=== PATIENT | male | born 1965 | race Caucasian/White ===

== ENCOUNTER 2018-02-18 08:15 | Day surgery (SDC) | payer OTHER ==
[2018-02-18] MEDS ORDERED: LIDOCAINE 2% MPF 5 ML VIAL ONE (08:28)
[2018-02-18] MEDS ORDERED: Ringers Lactate 1,000 ML IV ONE (08:40)
[2018-02-18] MEDS ORDERED: PROPOFOL 200 MG/20 ML VIAL IV ONE (09:57)
[2018-02-18] MEDS ORDERED: MIDAZOLAM HCL 2 MG/2 ML INJ ONE (09:57)
[2018-02-18 10:56] VITALS: BP 128/77; TEMP 98.3; O2SAT 97
--- NOTE | 2018-02-18 11:56 | ENDO RPT ---
[address], [address] COLONOSCOPY PROCEDURE REPORT EXAM DATE: 02/18/2018 PATIENT NAME: Blaise Smith MR #: [id number] BIRTHDATE: 1965 ATTENDING: Raheem Delaney DR STATUS: outpatient CASINO FLOOR PERSON: Phoebe Moon RN and Raul Torres [facility] INDICATIONS: The patient is a 52 yr old Male here for a colonoscopy due to S/P perforated diverticulitis with emergent colostomy PROCEDURE PERFORMED: Screening Colonoscopy MEDICATIONS: Per Anesthesia. ESTIMATED BLOOD LOSS: None CONSENT: The patient understands the risks and benefits of the procedure and understands that these risks include, but are not limited to: sedation, allergic reaction, infection, perforation and/or bleeding. Alternative means of evaluation and treatment include, among others: physical exam, x-rays, and/or surgical intervention. The patient elects to proceed with this endoscopic procedure. DESCRIPTION OF PROCEDURE: During intra-op preparation period all mechanical medical equipment was checked for proper function. Hand hygiene and appropriate measures for infection prevention was taken. Procedure, possible complications, alternatives including, but not limited to possibility of bleeding, perforation, tear, infection, sepsis, need for surgery, need for blood transfusion, were explained to the patient. After the risks, benefits and alternatives of the procedure were thoroughly explained, Informed consent was verified, confirmed and timeout was successfully executed by the treatment team. The patient was placed in the left lateral position. A digital rectal exam was performed and revealed internal hemorrhoids. After appropriate level of anesthesia, the scope was passed. The [id number] ([id number]) endoscope was introduced through the anus and advanced to the cecum, which was identified by both the appendix and ileocecal valve. The instrument was then slowly withdrawn as the colon was fully examined. Scope withdrawal time was 8 minutes. COLON FINDINGS: Moderate diverticulosis was noted throughout the entire examined colon. No bleeding was noted from the diverticulosis. There was evidence of a normal appearing prior surgical anastomosis with visible sutures in the rectum. Retroflexed views revealed no abnormalities. The scope was then completely withdrawn from the patient and the procedure terminated. ADVERSE EVENTS: There were no complications. IMPRESSIONS: 1. Moderate diverticulosis was noted throughout the entire examined colon 2. There was evidence of prior surgical anastomosis in the rectum RECOMMENDATIONS: 1. follow-up: office 3 year(s) 2. yearly hemoccult starting in 4 years 3. hemorrhoidal hygiene 4. increase dietary water 5. low fiber / diverticular diet RECALL: Return in 3 year(s) for Colonoscopy. Raheem Delaney DR eSigned: Raheem Delaney DR 02/18/2018 10:35 AM cc: CPT CODES: ICD9 CODES: PATIENT NAME: Blaise SmithStacy MR#: [id number]
== END 2018-02-18 11:02 | disposition home or self-care (01) ==
LOC: OR 08:15
PROVIDERS: ATTEND Surgery
PROC: 0DJD8ZZ Inspection of Lower Intestinal Tract, Via Natural or Artificial Opening Endoscopic (ICD-10-PCS; principal; 2018-02-18 10:00)
DX: Z12.11 Encounter for screening for malignant neoplasm of colon (principal); K57.90 Diverticulosis of intestine, part unspecified, without perforation or abscess without bleeding; K64.8 Other hemorrhoids; K21.9 Gastro-esophageal reflux disease without esophagitis; I10 Essential (primary) hypertension; I48.91 Unspecified atrial fibrillation; E78.00 Pure hypercholesterolemia, unspecified; Z88.6 Allergy status to analgesic agent; Z81.2 Family history of tobacco abuse and dependence
CPT/HCPCS: J2250

== ENCOUNTER 2018-07-02 12:07 | Inpatient (IN) | payer OTHER ==
[2018-07-02 13:06] LABS: Absolute Lymphocytes (CBC) 0.4 K/uL (0.7-4.9); Absolute Monocytes 0.3 K/uL (0.1-1.3); Absolute Neutrophil 13.2 K/uL (1.8-8.0); Basophils % 0.1 % (0-1.3); Hematocrit 47.3 % (39.6-49.0); Lymphocytes % 2.9 % (15.3-44.8); MPV 10.9 fL (7.6-11.3); Monocytes % 2.1 % (3.3-12.3); RBC Red Blood Cell Count 5.49 M/uL (4.33-5.43)
[2018-07-02 13:25] LABS: Albumin 4.7 g/dL (3.4-5.0); Bilirubin Direct 0.1 mg/dL (0-0.2); Bilirubin Total 0.4 mg/dL (0.2-1.0); Potassium 3.3 mmol/L (3.5-5.1); Protein, Total 8.3 g/dL (6.4-8.2)
[2018-07-02] MEDS ORDERED: FENTANYL CITR 100 MCG/2 ML ONE ×2 (13:37→14:57)
[2018-07-02] MEDS ORDERED: ONDANSETRON 4 MG/2 ML VIAL ONE ×2 (13:37→16:03)
[2018-07-02 13:55] LABS: Urine Blood NEGATIVE (NEG); Urine Glucose NEGATIVE (NEG); Urine Protein TRACE (NEG)
[2018-07-02 14:26] LABS: Blood Morphology Comment NOT SEEN (NOT SEEN); Platelet Estimate ADEQ; Urine White Blood Cell Casts 0
--- NOTE | 2018-07-02 14:27 | RAD REPORT ---
EXAM DESCRIPTION: CTAbdomen Pelvis W Contrast - 07/02/2018 1:59 pm CLINICAL HISTORY: Abdominal pain. abdominal pain, IV ONLY COMPARISON: CT ABD PELVIS W CONTRAST dated 04/14/2014; CT ABD PELVIS W CONTRAST dated 11/22/2013 TECHNIQUE: Biphasic CT imaging of the abdomen and pelvis was performed with 100 ml non-ionic IV cont rast. All CT scans are performed using dose optimization technique as appropriate and may include automated exposure control or mA/KV adjustment according to patient size. FINDINGS: The lung bases are clear. The liver demonstrates no aggressive mass or biliary dilatation. The spleen, pancreas, adrenal glands and left kidney are unremarkable. Right kidney contains several cysts the largest measuring 4.4 cm s uperior pole right kidney. Mildly dilated small bowel loops in the central lower abdomen are present compatible with developing mechanical small-bowel obstruction. Multiple complex ventral hernias are present containing fat. Some of the fat in the inferior hernia sac shows slight reticulation suggesting mild findings of incarcer ation are present. Prominent sigmoid diverticulosis is noted without diverticulitis. The appendix is normal. No evidence of significant lymphadenopathy. Lumbosacral degenerative changes are present with hardware in place. IMPRESSION: Mildly dilated small bowel loops in the mid and lower abdomen are noted most compatible with developing mechanical small-bowel obstruction. Multiple complex ventral hernias are seen contain ing omental fat with subtle areas suggesting early incarceration. Prominent sigmoid diverticulosis without diverticulitis.
[2018-07-02] MEDS ORDERED: CEFOXITIN/SWI 1gm 1 GM/10 ML SYR ONE (15:23)
--- NOTE | 2018-07-02 15:59 | ER ---
Nurse's Notes [facility] Name: Blaise Smith Age: 53 yrs Sex: Male : 1965 Arrival Date: 07/02/2018 Time: 12:10 Bed 2 Private MD: Rick Dorsey R Diagnosis: Bowel Obstruction Presentation: 07/02 12:18 Presenting complaint: Patient states: 3 am today, i went to the bathroom and my stomach hj started to have cramps; reports nausea and vomiting; denies diarrhea; hx of colectomy 2ndary to diverticulitis 2 years ago; ; pain is 7/10;. Transition of care: patient was not received from another setting of care. Onset of symptoms was July 02, 2018. Risk Assessment: Do you want to hurt yourself or someone else? Patient reports no desire to harm self or others. Initial Sepsis Screen: Does the patient meet any 2 criteria? Yes Does the patient have a suspected source of infection? No. Patient's initial sepsis screen is negative. Care prior to arrival: None. 12:18 Method Of Arrival: Ambulatory 12:18 Acuity: WARNER 3 hj Triage Assessment: 12:23 General: Appears in no apparent distress. uncomfortable, Behavior is calm, cooperative, hj appropriate for age. Pain: Complains of pain in abdomen. GI: Abdomen is non-distended, Reports lower abdominal pain, upper abdominal pain. Historical: - Allergies: 12:23 Codeine; hj 12:23 meperidine HCl; hj - Home Meds: 12:23 Lipitor Oral [Active]; valsartan-hydrochlorothiazide oral oral [Active]; Nexium Oral hj [Active]; Cymbalta oral oral [Active]; Aspirin Oral [Active]; - PMHx: 12:23 Diverticulitis; Hypertension; Hyperlipidemia; hj - PSHx: 12:23 spinal fusions x 4; L5S1; colectomy; hj - Immunization history:: Adult Immunizations up to date. - Social history:: Smoking status: Patient/guardian denies using tobacco, Patient/guardian denies using alcohol. - Ebola Screening: : Patient negative for fever greater than or equal to 101.5 degrees Fahrenheit, and additional compatible Ebola Virus Disease symptoms Patient denies exposure to infectious person Patient denies travel to an Ebola-affected area in the 21 days before illness onset. Screenin:23 Abuse screen: Denies threats or abuse. Denies injuries from another. Nutritional hj screening: No deficits noted. Tuberculosis screening: No symptoms or risk factors identified. Fall Risk None identified. Assessment: 12:24 GI: Bowel sounds hj 12:49 General: Appears in no apparent distress. uncomfortable, obese, Behavior is bp cooperative, appropriate for age, anxious. Pain: Complains of pain in abdomen Pain currently is 8 out of 10 on a pain scale. Neuro: Level of Consciousness is awake, alert, obeys commands, Oriented to person, place, time, situation, Appropriate for age. Cardiovascular: Rhythm is sinus tachycardia. Respiratory: Airway is patent Respiratory effort is even, unlabored, Respiratory pattern is regular, symmetrical. GI: Bowel sounds present X 4 quads. Abd is soft X 4 quads Abdomen is tender to palpation X 4 quads. : No signs and/or symptoms were reported regarding the genitourinary system. EENT: No deficits noted. Derm: No deficits noted. Musculoskeletal: Circulation, motion, and sensation intact. Range of motion: intact in all extremities. 14:13 Reassessment: PT RETURNED FROM CT. bp 16:11 Reassessment: ADMIT IN PROCESS, SURGERY C/S PENDING. bp Vital Signs: 12:24 BP 126 / 90; Pulse 109; Resp 18; Temp 97.8(O); Pulse Ox 98% on R/A; Weight 99.34 kg; hj Height 5 ft. 10 in. (177.80 cm); Pain 5/10; 12:49 BP 143 / 86; Pulse 103; Resp 18; Pulse Ox 100% ; bp 14:13 BP 123 / 72; Pulse 94; Resp 14; Pulse Ox 95% ; bp 15:00 BP 134 / 79; Pulse 95; Resp 16; Pulse Ox 96% ; bp 16:00 BP 133 / 80; Pulse 93; Resp 14; Pulse Ox 96% ; bp 17:00 BP 117 / 88; Pulse 98; Resp 14; Pulse Ox 97% ; bp 12:24 Body Mass Index 31.42 (99.34 kg, 177.80 cm) ED Course: 12:10 Patient arrived in ED. mr 12:11 Rick Dorsey MD is Private Physician. mr 12:20 Triage completed. hj 12:23 Arm band placed on left wrist. hj 12:24 Patient has correct armband on for positive identification. Placed in gown. Bed in low hj position. Call light in reach. Side rails up X 1. Adult w/ patient. 12:30 Inserted saline lock: 22 gauge in right forearm, using aseptic technique. Blood bp collected. 12:37 Brenton Wong RN is Primary Nurse. bp 12:59 Prasanth Patrick PA is PHCP. jm 12:59 Paul Barron MD is Attending Physician. [facility] 14:00 CT Abd/Pelvis - W/Contrast In Process Unspecified. EDMS 14:08 CT completed. Patient tolerated procedure well. Patient moved back from CT. bq 15:57 Rick Dorsey MD is Hospitalizing Provider. [facility] 17:34 No provider procedures requiring assistance completed. Patient admitted, IV remains in bp place. Administered Medications: 13:32 Drug: fentaNYL (PF) 50 mcg Route: IVP; Site: right antecubital; la1 14:00 Follow up: Response: Pain is decreased bp 13:32 Drug: Zofran 4 mg Route: IVP; Site: right antecubital; la1 14:00 Follow up: Response: No adverse reaction bp 14:48 Drug: fentaNYL (PF) 50 mcg Route: IVP; Site: right forearm; la1 15:07 Follow up: Response: Pain is decreased bp 15:10 Drug: Mefoxin 1 grams Route: IVPB; Infused Over: 30 mins; Site: right forearm; bp 15:45 Follow up: IV Status: Completed infusion; IV Intake: 100ml bp 15:55 Drug: Zofran 4 mg Route: IVP; Site: right antecubital; la1 17:37 Follow up: Response: Nausea is decreased bp 16:50 Drug: Reglan 10 mg Route: IVP; Site: right forearm; bp 17:36 Follow up: Response: Nausea is decreased bp 16:50 Drug: morphine 4 mg Route: IVP; Site: right forearm; bp 17:36 Follow up: Response: Pain is decreased bp Intake: 15:45 IV: 100ml; Total: 100ml. bp Outcome: 15:58 Decision to Hospitalize by Provider. jmm 17:51 Admitted to Med/surg accompanied by tech, family with patient, via wheelchair, room bp 219, with chart, Report called to BETTY GARZA 17:51 Condition: stable 17:51 Instructed on the need for admit. 18:25 Patient left the ED. bp Signatures: Dispatcher [employer] EDMS Prasanth Patrick PA PA jmm Sofía Millard Betty Adan Brown RN RN la1 Willard Rosa RN RN hj Peltier, Brian RN RN bp Corrections: (The following items were deleted from the chart) 12:26 12:24 Pulse 109bpm; Resp 18bpm; Pulse Ox 98% RA; Temp 97.8F Oral; 99.34 kg; Height 5 hj ft. 10 in.; BMI: 31.4; Pain 5/10; hj 12:40 12:18 Presenting complaint: Patient states: 3 am today, i went ot the bathroom and had hj my stomach starting to have cramps; reports nausea and vomiting; denies diarrhea; hx of colectomy 2ndary to diverticulitis; pain is 7/10; hj
--- NOTE | 2018-07-02 15:59 | EDPHYS ---
Physician Documentation [facility] Name: Blaise Smith Age: 53 yrs Sex: Male : 1965 Arrival Date: 07/02/2018 Time: 12:10 Bed 2 Private MD: Rick Dorsey R ED Physician Paul Barron HPI: 07/02 13:17 This 53 yrs old Male presents to ER via Ambulatory with complaints of jmm Abdominal Pain. 13:17 The patient presents with abdominal pain in the lower abdomen. Onset: The jmm symptoms/episode began/occurred gradually, this morning. The symptoms do not radiate. Associated signs and symptoms: Pertinent positives: vomiting. This is a 53 year old male with a history of diverticulitits, htn, hlp that presents to the ED with commplaints of generalized abdominal pain beginning today with one episode of vomiting. Patient states history of diverticulitis with colectomy in 2014. Patient denies diarrhea. . Historical: - Allergies: 12:23 Codeine; hj 12:23 meperidine HCl; hj - Home Meds: 12:23 Lipitor Oral [Active]; valsartan-hydrochlorothiazide oral oral [Active]; Nexium Oral hj [Active]; Cymbalta oral oral [Active]; Aspirin Oral [Active]; - PMHx: 12:23 Diverticulitis; Hypertension; Hyperlipidemia; hj - PSHx: 12:23 spinal fusions x 4; L5S1; colectomy; hj - Immunization history:: Adult Immunizations up to date. - Social history:: Smoking status: Patient/guardian denies using tobacco, Patient/guardian denies using alcohol. - Ebola Screening: : Patient negative for fever greater than or equal to 101.5 degrees Fahrenheit, and additional compatible Ebola Virus Disease symptoms Patient denies exposure to infectious person Patient denies travel to an Ebola-affected area in the 21 days before illness onset. ROS: 13:17 Constitutional: Negative for fever, chills, and weight loss, Cardiovascular: Negative jmm for chest pain, palpitations, and edema, Respiratory: Negative for shortness of breath, cough, wheezing, and pleuritic chest pain. 13:17 Back: Negative for injury and pain, Skin: Negative for injury, rash, and discoloration, Neuro: Negative for headache, weakness, numbness, tingling, and seizure. 13:17 Abdomen/GI: Positive for abdominal pain, nausea, vomiting. 13:17 All other systems are negative. Exam: 13:17 Head/Face: atraumatic. Eyes: EOMI, no conjunctival erythema appreciated ENT: Moist jmm Mucus Membranes Neck: Trachea midline, Supple Chest/axilla: Normal chest wall appearance and motion. Cardiovascular: Regular rate and rhythm. No edema appreciated Respiratory: Normal respirations, no respiratory distress appreciated 13:17 Constitutional: The patient appears alert, awake, uncomfortable. 13:17 Abdomen/GI: Inspection: abdomen appears normal, Bowel sounds: normal, Palpation: moderate abdominal tenderness, in all quadrants, mass, that is tender, of the umbilical area and suprapubic area. 13:17 Back: ROM is normal. 13:17 Musculoskeletal/extremity: ROM: intact in all extremities. 13:17 Neuro: Orientation: is normal, Mentation: is normal, Memory: is normal. 13:17 Psych: Behavior/mood is pleasant, cooperative. Vital Signs: 12:24 BP 126 / 90; Pulse 109; Resp 18; Temp 97.8(O); Pulse Ox 98% on R/A; Weight 99.34 kg; hj Height 5 ft. 10 in. (177.80 cm); Pain 5/10; 12:49 BP 143 / 86; Pulse 103; Resp 18; Pulse Ox 100% ; bp 14:13 BP 123 / 72; Pulse 94; Resp 14; Pulse Ox 95% ; bp 15:00 BP 134 / 79; Pulse 95; Resp 16; Pulse Ox 96% ; bp 16:00 BP 133 / 80; Pulse 93; Resp 14; Pulse Ox 96% ; bp 17:00 BP 117 / 88; Pulse 98; Resp 14; Pulse Ox 97% ; bp 12:24 Body Mass Index 31.42 (99.34 kg, 177.80 cm) MDM: 13:17 Patient medically screened. shayla 15:56 Data reviewed: vital signs, nurses notes. Counseling: I had a detailed discussion with shayla the patient and/or guardian regarding: the historical points, exam findings, and any diagnostic results supporting the discharge/admit diagnosis, lab results, radiology results, the need for further work-up and treatment in the hospital. ED course: I discussed the patient with Dr. Delaney whom consulted with Dr. Desai on admission. . ED course: i discussed the patient with Dr. Dorsey whom accepted admission. . 07/02 12:48 Order name: Basic Metabolic Panel; Complete Time: 13:26 bp 07/02 12:48 Order name: CBC with Diff; Complete Time: 14:42 bp 07/02 12:48 Order name: Creatinine for Radiology; Complete Time: 13:26 bp 07/02 12:48 Order name: Hepatic Function; Complete Time: 13:26 bp 07/02 12:48 Order name: Lipase; Complete Time: 13:26 bp 07/02 12:50 Order name: Urine Dipstick--Ancillary (enter results); Complete Time: 14:20 eb 07/02 13:10 Order name: CBC Smear Scan; Complete Time: 14:42 EDNV 07/02 16:43 Order name: Basic Metabolic Panel EDNV 07/02 16:43 Order name: Basic Metabolic Panel EDNV 07/02 16:43 Order name: CBC with Automated Diff EDNV 07/02 16:43 Order name: CBC with Automated Diff EDNV 07/02 16:43 Order name: Lipase EDNV 07/02 16:43 Order name: Lipase EDNV 07/02 16:43 Order name: Liver (Hepatic) Function EDNV 07/02 12:48 Order name: IV Saline Lock; Complete Time: 12:55 bp 07/02 12:48 Order name: Labs collected and sent; Complete Time: 12:55 bp 07/02 12:48 Order name: Urine Dipstick-Ancillary (obtain specimen); Complete Time: 12:49 bp 07/02 13:19 Order name: CT Abd/Pelvis - W/Contrast; Complete Time: 14:42 [facility] 07/02 16:43 Order name: CONS Physician Consult EDNV 07/02 16:43 Order name: NPO EDNV 07/02 16:43 Order name: Liver (Hepatic) Function EDMS Administered Medications: 13:32 Drug: fentaNYL (PF) 50 mcg Route: IVP; Site: right antecubital; la1 14:00 Follow up: Response: Pain is decreased bp 13:32 Drug: Zofran 4 mg Route: IVP; Site: right antecubital; la1 14:00 Follow up: Response: No adverse reaction bp 14:48 Drug: fentaNYL (PF) 50 mcg Route: IVP; Site: right forearm; la1 15:07 Follow up: Response: Pain is decreased bp 15:10 Drug: Mefoxin 1 grams Route: IVPB; Infused Over: 30 mins; Site: right forearm; bp 15:45 Follow up: IV Status: Completed infusion; IV Intake: 100ml bp 15:55 Drug: Zofran 4 mg Route: IVP; Site: right antecubital; la1 17:37 Follow up: Response: Nausea is decreased bp 16:50 Drug: Reglan 10 mg Route: IVP; Site: right forearm; bp 17:36 Follow up: Response: Nausea is decreased bp 16:50 Drug: morphine 4 mg Route: IVP; Site: right forearm; bp 17:36 Follow up: Response: Pain is decreased bp Disposition: 18:30 Co-signature as Attending Physician, Paul Barron MD. Disposition: 07/02/18 15:58 Hospitalization ordered by Rick Dorsey for Observation. Preliminary diagnosis is Bowel Obstruction. - Bed requested for Telemetry/MedSurg (observation). - Status is Observation. bp - Condition is Stable. - Problem is new. - Symptoms have improved. UTI on Admission? No Signatures: Dispatcher [employer] EDMS Maggie Cervantes RN RN dw Prasanth Patrick PA PA [facility] Adan Costa RN RN la Willard Rosa, RN Paul Cobb MD MD Brenton Wong RN RN bp Corrections: (The following items were deleted from the chart) 17:18 15:58 Hospitalization Ordered by Rick Dorsey MD for Observation. Preliminary diagnosis dw is Bowel Obstruction. Bed requested for Telemetry/MedSurg (observation). Status is Observation. Condition is Stable. Problem is new. Symptoms have improved. UTI on Admission? No. [facility] 18:25 17:18 07/02/2018 15:58 Hospitalization Ordered by Rick Dorsey MD for Observation. bp Preliminary diagnosis is Bowel Obstruction. Bed requested for Telemetry/MedSurg (observation). Status is Observation. Condition is Stable. Problem is new. Symptoms have improved. UTI on Admission? No. dw
[2018-07-02] MEDS ORDERED: FENTANYL CITR 100 MCG/2 ML IV PRN (16:39)
[2018-07-02] MEDS ORDERED: MORPHINE 4 MG/ML SYR ONE (17:01)
[2018-07-02] MEDS ORDERED: METOCLOPRAMIDE 10 MG/2mL INJ ONE (17:01)
[2018-07-02] MEDS ORDERED: CEFOXITIN SODIUM 1 GM/VIAL IVPB SCH (18:00)
[2018-07-02] MEDS: D5 0.45 NS 1,000 ML IV SCH (19:01)
[2018-07-02] MEDS: ONDANSETRON 4 MG/2 ML VIAL IV PRN (20:29)
[2018-07-02] MEDS ORDERED: DIAZEPAM 5 MG TABLET PO STA (21:17)
[2018-07-02] MEDS ORDERED: MORPHINE 4 MG/ML SYR IV SCH (22:00)
--- NOTE | 2018-07-02 22:06 | P.CNS ---
Date of Consult: 07/02/18 PC: I was asked to see this patient who presented emergency room with severe abdominal pain for diagnosis and treatment. HPC: Patient started experiencing severe abdominal pain yesterday. Has intensified and required of ER visit. On workup was found have a possible small -bowel obstruction. PMH: Hypertension, hypercholesterol in PSHx: Previous bowel resection for diverticulitis. (laparoscopic converted to open procedure) SOC: Allergic to codeine, and Demerol SYS REVIEW: No cough, wheeze, shortness of breath. No chest pain or palpitations. No urinary complaints. States that he has been having regular bowel movements. He has recently changed his diet to lose weight. More vegetables and fruit. Denies any urinary complaints O/E awake alert uncomfortable at the moment, vital signs are stable HEENT: Within normal limits Chest: Chest movement equal bilaterally ABD: Mildly distended, but soft. No guarding or rebound patient has incisional hernias, but they are soft at the moment LOCO: Intact DATA: Elevated white cell count, CT scans shows area of possible transition suggestive of possible developing SBO IMPRESSION: Abdominal pain secondary to adhesions PLAN: Keep NPO tonight, control his pain medicine, IV fluids, start incentive spirometer. Encourage patient ambulate. Will reassess in the a.m..
[2018-07-02] MEDS: MORPHINE 4 MG/ML SYR IV PRN (22:31)
[2018-07-02] MEDS: PROMETHAZINE 25 MG/ML VIAL IV PRN (22:38)
[2018-07-03] MEDS: D5 0.45 NS 1,000 ML IV SCH ×3 (00:25→08:39)
[2018-07-03] MEDS ORDERED: CEFOXITIN/SWI 1gm 1 GM/10 ML SYR ONE ×2 (00:35→04:30)
[2018-07-03] MEDS: CEFOXITIN/SWI 1gm 1 GM/10 ML SYR IV SCH ×3 (00:39→13:23)
[2018-07-03] MEDS: MORPHINE 4 MG/ML SYR IV PRN ×6 (00:59→22:22)
[2018-07-03 05:25] LABS: Absolute Lymphocytes (CBC) 0.3 K/uL (0.7-4.9); Absolute Monocytes 0.8 K/uL (0.1-1.3); Absolute Neutrophil 19.9 K/uL (1.8-8.0); Basophils % 0.4 % (0-1.3); Lymphocytes % 1.3 % (15.3-44.8); MPV 11.4 fL (7.6-11.3); Monocytes % 3.8 % (3.3-12.3); RBC Red Blood Cell Count 5.86 M/uL (4.33-5.43)
[2018-07-03 05:44] LABS: Albumin 4.1 g/dL (3.4-5.0); Bilirubin Direct 0.2 mg/dL (0-0.2); Bilirubin Total 0.4 mg/dL (0.2-1.0); Potassium 3.2 mmol/L (3.5-5.1); Protein, Total 7.7 g/dL (6.4-8.2)
[2018-07-03] MEDS: ONDANSETRON 4 MG/2 ML VIAL IV PRN ×2 (06:11→20:11)
[2018-07-03] MEDS: hydroCHLOROthiazide 25 MG TAB PO SCH ×2 (08:37→09:00)
[2018-07-03] MEDS: VALSARTAN 80 MG TAB PO SCH ×2 (08:37→09:00)
[2018-07-03] MEDS: OXcarbazepine 150 MG TAB PO SCH ×2 (09:00→20:12)
[2018-07-03] MEDS ORDERED: KCL 20 MEQ/100 mL IVPB 20 MEQ/100 ML BAG IV SCH (09:00)
[2018-07-03] MEDS ORDERED: HOME MED 1 EA UNK (Valsartan/Hydrochlorothiazide [Valsartan-Hctz 320-25 Mg Tab] 1 TAB) PO SCH (09:00)
[2018-07-03] MEDS ORDERED: NS KCL 20MEQ 20 MEQ/1,000 ML BAG IV SCH (09:00)
[2018-07-03 09:09] LABS: Blood Morphology Comment NOT SEEN (NOT SEEN); Platelet Estimate ADEQ
--- NOTE | 2018-07-03 11:58 | P.PN ---
Date of Service: 07/03/18 Responded to a rapid response paged overhead. It seems that while nurse was trying to place NG tube, patient became unresponsive, diaphoretic, and eyes rolled to left side and remained fixed. A rapid response was called. I assessed the patient, patient was able to verbalize, he was alert oriented x3, he was very diaphoretic and was complaining of abdominal pain along with nausea. Blood sugar was 207 Blood pressure stable and he was tachycardic Is alert oriented x3, in moderate acute distress Lungs clear to auscultation Cardiac: Tachycardic, sinus rhythm Abdomen: Distended, tender An EKG was ordered, with sinus tach. Case was discussed with Dr. Dorsey via telephone. Patient was then transferred to the ICU
[2018-07-03] MEDS ORDERED: NA CHLORIDE 0.9% 250 ML IV PRN (16:04)
--- NOTE | 2018-07-03 16:46 | RAD REPORT ---
EXAM DESCRIPTION: Xochitl Single View07/03/2018 4:31 pm CLINICAL HISTORY: Shortness of breath COMPARISON: July 2017 FINDINGS: The lungs appear clear of acute infiltrate. The heart is normal size. Nasogastric tube is present in the stomach IMPRESSION: No acute abnormalities displayed
[2018-07-03] MEDS ORDERED: NA CHLORIDE 0.9% 1,000 ML IV SCH ×2 (17:00→21:00)
[2018-07-03 17:05] LABS: Absolute Lymphocytes (CBC) 0.4 K/uL (0.7-4.9); Absolute Monocytes 1.7 K/uL (0.1-1.3); Basophils % 0.1 % (0-1.3); Eosinophils % 0.1 % (0-4.4); Lymphocytes % 3.6 % (15.3-44.8); MPV 11.2 fL (7.6-11.3); Monocytes % 14.3 % (3.3-12.3); RBC Red Blood Cell Count 6.24 M/uL (4.33-5.43)
[2018-07-03 17:24] LABS: ALT/SGPT 31 U/L (12-78); AST/SGOT 10 U/L (15-37); Albumin 3.2 g/dL (3.4-5.0); Alkaline Phosphatase 90 U/L (45-117); BUN Blood Urea Nitrogen 23 mg/dL (7-18); Bicarbonate 29 mmol/L (21-32); Bilirubin Total 0.6 mg/dL (0.2-1.0); Glucose Level 128 mg/dL (74-106); Protein, Total 6.5 g/dL (6.4-8.2); Sodium Level 141 mmol/L (136-145); Troponin I < 0.02 ng/mL (0.0-0.045)
[2018-07-03] MEDS ORDERED: PIPER/TAZO/NS 4.5gm 4.5 GM/100 ML BAG IVPB SCH (18:00)
[2018-07-03 18:29] LABS: Blood Morphology Comment NOT SEEN (NOT SEEN); Platelet Estimate ADEQ; Platelets, Giant PRESENT; Urine White Blood Cell Casts OK
[2018-07-03 20:00] LABS: Urine Appearance CLEAR; Urine Bilirubin NEGATIVE (NEG); Urine Blood NEGATIVE (NEG); Urine Color YELLOW; Urine Glucose NEGATIVE (NEG); Urine Protein 2+ (NEG); Urine Specific Gravity >=1.030 (1.005-1.030); Urine Urobilinogen 0.2 mg/dL (0.2-1.0)
[2018-07-03 20:01] LABS: Urine Microscopic Reflex ORDER UMIC
--- NOTE | 2018-07-03 20:06 | RAD REPORT ---
EXAM DESCRIPTION: CT - Abdomen Pelvis Wo Contrast - 07/03/2018 7:50 pm CLINICAL HISTORY: Abdominal pain COMPARISON: July 02, 2018 TECHNIQUE: Computed axial tomography of the abdomen and pelvis was obtained. IV and oral contrast we re not requested. All CT scans are performed using dose optimization technique as appropriate and may include automated exposure control or mA/KV adjustment according to patient size. FINDINGS: The evaluation of solid organs, vessels and bowel is limited secondary to the lack of con trast administration. There has been mild progression in the dilatation of jejunal and proximal ileal loops. The mid and di stal ileum are decompressed. A a small to moderate amount of ascites has developed within the pelvis. A small amount of ascites is present within the abdomen. Pneumoperitoneum is not seen. A complex vas hernia containing fat is again demonstrated. The hernia contains a small amount of flui d. Mild stranding within the herniated fat is present as well. A nasogastric tube has been placed into the stomach. The liver, spleen, pancreas, adrenals and left kidney appear grossly normal. Renal cysts unchanged A Levine catheter is present within the bladder. Post surgical changes involve the sigmoid colon. IMPRESSION: Mild worsening in a mechanical small bowel obstruction. Small amount of abdominal ascites. Small to moderate amount of pelvic ascites has developed. Complex ventral hernia contains a small amount of fluid. Mild stranding within the herniated fat may indicate strangulation.
--- NOTE | 2018-07-03 20:07 | P.PN ---
Date of Service: 07/03/18 S: Patient feels well at the current time. His pain is much improved since the placement of the nasogastric tube. O: Lashanda is soft, mildly distended, no areas of guarding or rebound A : Patient had elevated white cell count this morning, anion continuous abdominal pain. I ordered a nasogastric [address] The base the patient had a vasovagal attack ran KIM Renteria was called. He was brought to the ICU of were a nasogastric tube has been placed. Disposition is been verified on chest x- ray. He is stable. His blood pressure has been on the low side and he is mildly tachycardic. I feel this is from fluid depletion as I do not think he was year drinking prior to his presentation to the hospital. PE: Continue current therapy. A CT scan has been ordered but has not resulted yet.
[2018-07-03] MEDS ORDERED: NA CHLORIDE 0.9% 1,000 ML IV ONE (20:09)
[2018-07-03] MEDS: PIPER/TAZO/NS 2.25gm 2.25 GM/50 ML BAG IV SCH ×2 (20:11→23:56)
[2018-07-03 20:28] LABS: Urine Bacteria <20 /HPF (NONE SEEN); Urine Culture Reflex Order NOT NEEDED; Urine Mucus S /HPF (NONE SEEN); Urine RBC <5 /HPF (NONE SEEN)
[2018-07-03] MEDS ORDERED: NOREPINEPHRINE 4 MG in D5W 250 ML IV PRN (20:49)
[2018-07-03] MEDS: NA CHLORIDE 0.9% 100 ML IV SCH ×2 (21:00→23:00)
[2018-07-03] MEDS ORDERED: NA CHLORIDE 0.9% 100 ML IV SCH (22:00)
--- NOTE | 2018-07-04 04:00 | HP ---
Date of Admission: 07/03/2018 Chief Complaint: Abdominal pain. History Of Present Illness: A 53-year-old male was brought to the emergency room with abdominal pain , nausea, and vomiting. The patient had workup done. CAT scan showed evidence of bowel obstruction. The patient is admitted. There is no history of hematemesis. No history of rectal bleeding. Susan ent had colon resection because of diverticulitis in the recent past. Past Medical History: Positive for hypertension, hyperlipidemia, and history of diverticulitis. Past Surgical History: Positive for partial colectomy, back surgery with spinal fusions. Other medi agustin problems include history of occipital neuralgia. Allergies: CODEINE AND DEMEROL. Family History: Noncontributory. Review of Systems: No chest pain or shortness of breath. Physical Examination: General: Revealed a 53-year-old obese male. Vital signs: Blood pressure at admission was normal. HEENT: Otherwise negative. Neck: Supple. JVD negative. Chest: Clear. Heart: Regular. Abdomen: Diffuse tenderness and mild distention noted. Bowel sounds present. Extremities: No edema. Laboratory Data: White count at admission was 13,000. CAT scan evidence of a bowel obstruction. Ch em profile essentially negative except for mild hypokalemia. Assessment: 1.Bowel obstruction. 2.Status post colectomy. 3.Hypertension. 4.Hyperlipidemia. 5.History of occipital neuralgia. 6.Spinal surgery with laminectomy. Plan: The patient after admission received IV fluids. He was n.p.o. He received IV antibiotic; how ever, while inserting NG tube, the patient had an episode of hypotension as well as transient unrespo nsive state. The patient is transferred to ICU where he is doing okay except for mild tachycardia an d hypotension. The patient has been loaded with IV fluids. His creatinine has gone to 2.5. Nephrol ogy consult is done. His white count actually is better this evening indicating lack of septic event ; however, he is changed to Zosyn for better coverage. Dr. Desai is following the patient for surg ical issues. The patient will have Levine catheter to monitor urine output. RRK/MODL Voice ID: [id number]
[2018-07-04] MEDS: MORPHINE 4 MG/ML SYR IV PRN ×4 (04:25→23:00)
[2018-07-04] MEDS: ONDANSETRON 4 MG/2 ML VIAL IV PRN (04:28)
[2018-07-04] MEDS: PIPER/TAZO/NS 2.25gm 2.25 GM/50 ML BAG IV SCH ×3 (05:25→18:39)
[2018-07-04 05:33] LABS: Absolute Lymphocytes (CBC) 0.9 K/uL (0.7-4.9); Absolute Monocytes 1.2 K/uL (0.1-1.3); Absolute Neutrophil 5.3 K/uL (1.8-8.0); Basophils % 0.3 % (0-1.3); Eosinophils % 0.2 % (0-4.4); Hematocrit 46.5 % (39.6-49.0); Lymphocytes % 12.3 % (15.3-44.8); Monocytes % 16.2 % (3.3-12.3); RBC Red Blood Cell Count 5.32 M/uL (4.33-5.43)
[2018-07-04 05:46] VITALS: BMI 32.8
[2018-07-04 05:49] LABS: Albumin 2.8 g/dL (3.4-5.0); Bilirubin Total 0.5 mg/dL (0.2-1.0); Potassium 3.9 mmol/L (3.5-5.1); Protein, Total 5.8 g/dL (6.4-8.2)
[2018-07-04] MEDS: OXcarbazepine 150 MG TAB PO SCH ×2 (07:51→21:00)
--- NOTE | 2018-07-04 08:53 | EKG ---
Test Date: 2018-07-03 Test Time: 11:41:02 Child Care Lead Teacher: VICKY MEASUREMENT RESULTS: Intervals: Rate: 131 DC: 152 QRSD: 98 QT: 286 QTc: 422 Hanna: P: 30 DC: 152 QRS: 88 T: -13 INTERPRETIVE STATEMENTS: Sinus tachycardia ST & T wave abnormality, consider inferior ischemia Abnormal ECG Compared to ECG 07/27/2014 07:55:05 ST (T wave) deviation now present Possible ischemia now present Sinus rhythm no longer present Electronically Signed On 07-04-18 08:52:09 REPEATER OPERATOR by Pedro Manzanares
[2018-07-04] MEDS ORDERED: NA CHLORIDE 0.9% 1,000 ML IV SCH ×2 (10:00→23:00)
--- NOTE | 2018-07-04 15:04 | P.PN ---
Date of Service: 07/04/18 S: Patient states he is still having occasional abdominal discomfort. Also says is very thirsty. Getting occasional bouts of severe pain today. Still no bowel movement or gas per rectum. O: Vital signs are stable, abdomen is soft, still has mass effect in the upper abdomen that we could now feel that is abdomen is not so distended. He is also tender in this area. About 100 cc of fluid out through nasogastric tube. A: We had had this patient and conservative management for the last 48 hr. He still has failure to progress. I am concerned any still has some abdominal pain. The CT scan showed worsening of the mechanical obstruction last night, he has been considerably decompressed today with a nasogastric tube. I am going to take him to the operating room after discussing this with the patient. We went over the potential complications. The possibility of recurrent hernias. The need for further surgeries and procedures. He is more than ready to go to the operating room to have this issue resolves. He understands the with the wrist and wants us to proceed. His is here at the bedside. P: To OR for exploratory laparotomy, lysis of adhesions any indicated procedures.
[2018-07-04] MEDS ORDERED: CEFOXITIN/SWI 1gm 1 GM/10 ML SYR IVP SCH (15:15)
[2018-07-04] MEDS ORDERED: SUCCINYLCHOLINE 20 MG/ML (10 ML) IV ONE (15:36)
[2018-07-04] MEDS ORDERED: MIDAZOLAM HCL 2 MG/2 ML INJ ONE (15:43)
[2018-07-04] MEDS ORDERED: PROPOFOL 200 MG/20 ML VIAL IV ONE (15:43)
[2018-07-04] MEDS ORDERED: FENTANYL CITR 250 MCG/5 ML ONE (15:43)
[2018-07-04] MEDS ORDERED: ROCURONIUM 50 MG/5 ML VIAL IV ONE ×2 (16:05→16:27)
[2018-07-04] MEDS ORDERED: Phenylephrine HCl 10 MG/ML 1 ML VIAL ONE (16:09)
[2018-07-04] MEDS ORDERED: Ringers Lactate 1,000 ML IV ONE (16:24)
[2018-07-04] MEDS ORDERED: NEOSTIGMINE 1 MG/ML -10 ML VIAL ONE (17:05)
[2018-07-04] MEDS ORDERED: GLYCOPYRROLATE 0.2 MG/ML SYR ONE ×2 (17:06)
--- NOTE | 2018-07-04 17:51 | P.OP ---
Preoperative diagnosis: Small-bowel obstruction Postoperative diagnosis: Ventral hernias with small bowel obstruction and extensive intra-abdominal Primary procedure: Exploratory laparotomy Secondary procedure: Lysis of extensive intra-abdominal adhesions Other procedure(s): And reduction of incarcerated ventral hernias. Anesthesia: General Estimated blood loss: Less than 100 cc Specimen: Omentum and hernia sacs Operative Technique: The patient brought the operating room and placed supine on the table. After the induction of adequate general endotracheal anesthesia, the area of the abdomen was prepped with a Betadine solution, and he was draped in usual aseptic manner. Having verified on the CT scan the midline and the fact no bowel was actually involved in these hernia sacs I generous midline skin incision was made. This is brought down through the skin and subcutaneous tissue. We encounter these it hernia sacs with omentum incarcerated in the sac some cells. The omentum was traced back into the peritoneal cavity after having opened the sacs and we were able to open our incision for its full length without in for in on any bowel. At this point the abdomen was inspected. We could see that there was some blood-tinged serous fluid in the peritoneal cavity. This was aspirated. The bowel was inspected and found to be quite congested but viable. The small bowel was now run from the ligament of Treitz distally. At the level of the mid to distal ejection a band was found across the small bowel. This was divided. We could see the gas and fluid immediately passed down through the distal portion of the contracted small intestine. The small bowel was now traced down to the ileocecal valve. There was also another area of concern were a band had formed I across the more distal portion of the ileum to the area of the colon that had been involved in diverticular disease and diverticulitis in the past. The small bowel was completely freed up out of the pelvis. At this point it was run completely. There was no evidence of any serosal damage. The intestines were returned to the normal anatomical position. The omentum was adherent along the left lateral sidewall. This was detached. It was also found to have form some stringy adhesions to the pelvis were he had had a prior bowel obstruction. The omentum was completely freed. It was then partially resected using the ligature to clean the Lashanda's and the laid back over the small bowel. At this point the abdomen is inspected to ensure adequate hemostasis. The anterior abdominal wall was now approximated using a running suture of looped nylon. 1 suture started from the top 1 from the bottom and tied in just above the umbilicus. At this point the skin was approximated with la nena. At the end of the procedure the patient was in a stable condition when sent to the recovery room. Needle sponge instrument count were correct. No drains were placed. Complications: None Transferred to: Recovery Room Condition: Good
[2018-07-04] MEDS ORDERED: NA CHLORIDE 0.9% 1,000 ML IV ONE (19:10)
[2018-07-04] MEDS ORDERED: Pharmacy Consult 1 EA XX PRN (22:22)
[2018-07-04] MEDS ORDERED: NOREPINEPHRINE 4mg/D5W 250mL 4 MG/250 ML BAG IV ONE (22:44)
[2018-07-04 22:53] LABS: Arterial Blood Carboxyhemoglob 1.7 % (0-1.5); Blood Gas RHB 86.8 %; Blood O2 Saturation 88.9 % (92-98.5)
[2018-07-04] MEDS ORDERED: VANCOMYCIN 1.75 GM in NA CHLORIDE 0.9% 500 ML IV SCH (23:00)
[2018-07-05] MEDS: PIPER/TAZO/NS 2.25gm 2.25 GM/50 ML BAG IV SCH ×4 (00:13→17:13)
[2018-07-05] MEDS ORDERED: VANCOMYCIN 1 GM/VIAL ONE (00:14)
[2018-07-05] MEDS ORDERED: NA CHLORIDE 0.9% 500 ML ONE (00:14)
[2018-07-05] MEDS ORDERED: WATER FOR INJ,STERILE 40 ML ONE (00:15)
--- NOTE | 2018-07-05 01:12 | PN ---
The patient improved with loading with the IV fluids. His creatinine has come down. He still has ab dominal pain and distention. His white count has come down. The patient will be continued on IV ant ibiotic and IV fluids, pending the decision by the surgical team for any intervention. RON/SHERRIE Voice ID: [id number] Report ID: [id number]
[2018-07-05 02:02] LABS: Hematocrit 38.7 % (39.6-49.0)
[2018-07-05] MEDS: MORPHINE 4 MG/ML SYR IV PRN ×3 (03:30→21:30)
--- NOTE | 2018-07-05 03:52 | CON ---
Date of Consultation: 07/04/2018 Chief Complaint: Acute kidney injury, moderately severe, nonoliguric, associated with severe renal h ypoperfusion in setting of sepsis with small-bowel obstruction. Renal function has not improved sign ificantly over last 48 hours. The patient has multiple medical problems including previous surgery f or bowel obstruction. On arrival to the hospital, creatinine level was 2.25 and BUN was 29, ranging up from 23 to 29. The patient is in ICU. He has hypotension. He is on IV fluids for blood pressure support. He came to the hospital on July 03 for abdominal pain, nausea, vomiting. He denies melena or hematemesis . He denies chest pain. He is a 53-year-old man who was brought to the hospital because of abdomina l pain, some nausea and vomiting. CT scan showed small bowel obstruction. There was no history of h ematemesis. He denied rectal bleeding. Previously, he had a colon resection because of diverticulit is. Review of Systems: Constitutional: Denies fever or chills. Eyes: Denies vision changes. Ears, Nose, Mouth, and Throat: Denies sore throat or earache. Respiratory: Denies PND or orthopnea. Cardiovascular: Denies chest pain or palpitation. GI: Complaining of nausea and vomiting. Denies melena or hematemesis. : Denies dysuria or hematuria. Musculoskeletal: Denies muscle aches or soreness. All other systems reviewed and all are negative. Past Medical History: Hypertension, hyperlipidemia, obesity, diverticulitis. Past Surgical History: Colectomy, back surgery with spinal fusion. Social History: Denies tobacco, alcohol, or illicit drugs. Family History: No kidney disease in the family. Lab Work: Sodium 145, potassium 3.9, chloride 113, CO2 28, BUN 29, creatinine 1.8, calcium 8.2, albu min 2.8. Hemoglobin is 12.7, WBC 21.1, platelet count is 256,000. Abdomen CT scan showed progressio n of proximal ileal loops consistent with bowel obstruction. Levine catheter in place. No hydronephr osis. Impression And Plan: 1.Acute kidney injury, severe, secondary to severe renal hypoperfusion with acute tubular necrosis. Continue IV fluids. Avoid nonsteroidal anti-inflammatory medication. Continue to monitor blood pre ssure and start pressors as needed for hypotension. 2.Small-bowel obstruction. The patient will have surgery. 3.The patient will continue IV fluids for volume resuscitation and treat acute kidney injury. Monit or electrolytes and plan replacement as needed. 4.Hypotension. The patient might be a candidate for IV albumin for blood pressure support. 5.CT scan of the abdomen until this was done on arrival to the hospital, although IV contrast was no t used because of acute kidney injury. 6.Monitor electrolytes and rule out rhabdomyolysis. EB/MODL Voice ID: [id number] Report ID: [id number]
[2018-07-05 05:05] LABS: Absolute Lymphocytes (CBC) 0.8 K/uL (0.7-4.9); Absolute Neutrophil 5.9 K/uL (1.8-8.0); Basophils % 0.2 % (0-1.3); Eosinophils % 0.2 % (0-4.4); Hematocrit 37.7 % (39.6-49.0); Lymphocytes % 10.2 % (15.3-44.8); MPV 10.7 fL (7.6-11.3); RBC Red Blood Cell Count 4.27 M/uL (4.33-5.43)
[2018-07-05 05:20] LABS: Potassium 3.6 mmol/L (3.5-5.1)
--- NOTE | 2018-07-05 08:26 | RAD REPORT ---
EXAM DESCRIPTION: RAD - Chest Single View - 07/05/2018 6:25 am CLINICAL HISTORY: f/u post op Chest pain. COMPARISON: Chest Single View dated 07/03/2018; Chest Pa And Lat (2 Views) dated 07/16/2017; CHEST PA A ND LAT 2 VIEW dated 11/13/2013; Abdomen Pelvis Wo Contrast dated 07/03/2018 FINDINGS: Portable technique limits examination quality. The lungs are underinflated grossly clear. Enteric tube descends into the upper abdomen. Heart size i s within normal limits. Cervical hardware plate is present.
[2018-07-05] MEDS ORDERED: PHENOL 1.4% ORAL SPRAY 180ML MM PRN (08:29)
--- NOTE | 2018-07-05 08:37 | P.CNS ---
Date of Consult: 07/05/18 Chief Complaint: Hypotension postop History of Present Illness: Patient is is 53 years of age stay he had lysis of adhesions and laparotomy the transfer to the ICU due to hypotension was started on some low-dose Levophed he is currently doing much better feels hungry no history of cardiopulmonary problems before Patient admitted with small-bowel obstruction Allergies codeine Allergy (Verified 02/18/18 09:09) Shortness of breath meperidine HCl [From Demerol] Allergy (Verified 02/18/18 09:09) Nausea/Vomiting Home Medications: Aspirin [Aspirin EC 81 MG] 1 tab PO DAILY 04/14/14 Atorvastatin Calcium [Lipitor*] 1 tab PO DAILY 04/14/14 Esomeprazole Mag Trihydrate [Nexium] 1 tab PO DAILY 04/14/14 Levocetirizine Dihydrochloride [Xyzal] 1 tab PO DAILY 04/14/14 B12/Levomefolate Calcium/B-6 [Foltx Tablet] 1 tab PO BID 02/18/18 Duloxetine HCl [Cymbalta] 1 tab PO DAILY 02/18/18 Ibuprofen/Famotidine [Duexis 800-26.6 mg Tablet] 1 tab PO PRN 02/18/18 OXcarbazepine [Oxcarbazepine] 1 tab PO BID 02/18/18 Valsartan/Hydrochlorothiazide [Valsartan-Hctz 320-25 mg Tab] 1 tab PO DAILY 10/01 - Past Medical/Surgical History Diabetic: No -: arthritis -: tachycardic -: HTN -: GERD -: diverticulitis -: high cholesterol -: sleep apnea (CPAP) -: smoker -: Occipital neuralgia -: lumbar surg 2009, cervical 2013 -: 2 disc fusion L5s1 -: fusion back - Family History Mother Medical History: Cancer Notes: bro-brain aneuism, siblings with htn and degenerative disc dis. - Social History Alcohol use: No CD- Drugs: No Caffeine use: No Place of Residence: Home Review of Systems General: Weakness Gastrointestinal: Abdominal Pain Physical Examination Temp Pulse Resp BP Pulse Ox 97.9 F 103 H 23 H 116/55 L 99 07/05/18 04:00 07/05/18 06:00 07/05/18 06:00 07/05/18 06:00 02/19/19 06:00 General: Alert, In no apparent distress, Oriented x3 Neck: Supple Respiratory: Clear to auscultation bilaterally Cardiovascular: Regular rate/rhythm Gastrointestinal: Hypoactive - Problems (1) Postoperative hypotension Current Visit: Yes Status: Acute Plan: Patient is 53 years of age underwent lysis of adhesions and a laparotomy developed postoperative hypotension is currently doing much better renal function has improved patient was a little hypoxic his vital signs are currently stable he is off Levophed reduce the dose of IV fluids continue with IV antibiotics repeat curl blood cultures pending possible lead Dc antibiotics tomorrow white count is now normal chest x-rays clear elevated right hemidiaphragm which appears to be chronic
[2018-07-05] MEDS: NA CHLORIDE 0.9% 1,000 ML IV SCH ×2 (09:09→21:37)
[2018-07-05] MEDS: OXcarbazepine 150 MG TAB PO SCH ×2 (09:09→21:27)
[2018-07-05] MEDS ORDERED: MINERAL OIL 30 ML UCUP FT ONE (13:04)
--- NOTE | 2018-07-05 14:08 | P.PN ---
Date of Service: 07/05/18 S: Patient feels much better today, awake alert oriented. Complaining of nasogastric tube has soreness in his throat. Could feel his stomach rumbling. O: Vital signs are stable, had a vault towel blood pressure after surgery and required Levophed. Now off Levophed and blood pressure is stable. Good urine output. Minimal out through nasogastric tube. Hemoglobin remained stable at 12 and 36. A: Much improved after exploratory laparotomy with lyses of adhesions. PE: I will discontinue his nasogastric tube. We will allow him clear liquids. He will be transferred to the floor. He has been told that is been emphasized that he niece ambulate, use incentive spirometer, and we will transition him over to oral pain medication most likely tomorrow.
[2018-07-05] MEDS: PROMETHAZINE 25 MG/ML VIAL IV PRN ×2 (16:08→21:33)
[2018-07-05] MEDS: VANCOMYCIN 1.75 GM in NA CHLORIDE 0.9% 500 ML IV SCH (17:13)
--- NOTE | 2018-07-05 22:40 | PN ---
Date of Progress Note: 07/05/2018 Chief Complaint: Acute kidney injury. History Of Present Illness: Acute kidney injury, nonoliguric, associated with severe prerenal azotem ia, nonoliguric ATN. renal function has improved somewhat over last 24 hours. Creatinine was 1.8 an d today is 1.35. The patient was found to have hypernatremia. Sodium level was up to 150, potassium 3.6, chloride 118, CO2 28. The patient has small bowel obstruction. He underwent surgery yesterday . He remains in ICU. Review of Systems: Denies chest pain, palpitations, syncope. Physical Examination: Lungs: Clear to auscultation bilaterally. Heart: S1, S2. Abdomen: Bowel sounds diminished. Extremities: No edema Impression And Plan: 1.Acute kidney injury. Continue IV fluids. 2.Hypernatremia. Adjust fluids as needed. Monitor electrolytes closely. 3.Small bowel obstruction, status post surgery. 4.Hypertension. Monitor blood pressure. Currently, the patient is on IV medication as needed. Pre viously, he was taking valsartan. Angiotensin receptor brittni is on hold due to acute kidney injury . The patient has NG tube. He is advancing with clear liquids. He will be evaluated by surgical te am for further management. The patient has hypotension and he required Levophed after surgery. Currently, he is off Levophed. Monitor blood pressure closely. Adjust IV fluids found to control vo lemia. EB/MODL Voice ID: [id number] Report ID: [id number]
[2018-07-06] MEDS: PIPER/TAZO/NS 2.25gm 2.25 GM/50 ML BAG IV SCH ×3 (00:36→12:44)
--- NOTE | 2018-07-06 03:44 | PN ---
The patient has normal blood pressure today. He is making good urine output. His abdominal pain has improved. In view of improvement of all the functions, the patient is transferred to floor where he will be continued on the same management. His vancomycin will be discontinued. RON/SHERRIE Voice ID: [id number] Report ID: [id number]
[2018-07-06] MEDS: PROMETHAZINE 25 MG/ML VIAL IV PRN (04:36)
[2018-07-06] MEDS: MORPHINE 4 MG/ML SYR IV PRN (04:41)
[2018-07-06] MEDS: OXcarbazepine 150 MG TAB PO SCH ×2 (09:27→20:30)
[2018-07-06] MEDS: NA CHLORIDE 0.9% 1,000 ML IV SCH ×2 (11:40→20:31)
[2018-07-06] MEDS: VANCOMYCIN 1.75 GM in NA CHLORIDE 0.9% 500 ML IV SCH (12:44)
--- NOTE | 2018-07-06 14:28 | P.PN ---
Date of Service: 07/06/18 S: Patient was transfer the floor. Up ambulating. Feels much better. Asking for regular diet. Urinating on his own now the Levine catheter is out. No bowel movements yet but passing gas per rectum. O: Vital signs are stable, good effort on incentive spirometry. Incision is clean. A: Stable status exploratory laparotomy for lysis of extensive adhesions and small-bowel obstruction. P: Encourage ambulating. Start on regular diet. Hopefully discharge in a.m..
--- NOTE | 2018-07-06 15:52 | P.PN ---
Subjective Date of Service: 07/06/18 Chief Complaint: Hypotension postop Subjective: Improving Cr down to 1.3, which is close to baseline off vancomycin tolerating diet good UO encourage po intake Physical Examination - Vital Signs Temperature: 97.1 F Blood Pressure: 145/77 Pulse: 88 Respirations: 18 Pulse Ox (%): 95 - Physical Exam General: In no apparent distress, Oriented x3 HEENT: Atraumatic Neck: Supple, Without JVD or thyroid abnormality Respiratory: Clear to auscultation bilaterally Cardiovascular: No edema, Regular rate/rhythm, Normal S1 S2 Gastrointestinal: Soft and benign, Non-distended Assessment And Plan - Current Problems (Diagnosis) (1) ANGELO (acute kidney injury) Current Visit: Yes Status: Acute - Plan Impression And Plan: Acute kidney injury. prerenal encourage Po intake Small bowel obstruction, status post surgery. HTN controlled
--- NOTE | 2018-07-07 01:24 | PN ---
The patient is doing much better today. He is ambulating in the hallways. He is able to urinate. H is blood pressure is normal. The patient has passed some small amount of gas. He has good bowel yosi nds. The patient is progressing well. RON/SHERRIE Voice ID: [id number] Report ID: [id number]
[2018-07-07] MEDS: PROMETHAZINE 25 MG/ML VIAL IV PRN (02:39)
[2018-07-07] MEDS: OXcarbazepine 150 MG TAB PO SCH ×2 (10:20→20:13)
[2018-07-07] MEDS: NA CHLORIDE 0.9% 1,000 ML IV SCH ×2 (10:21→14:20)
--- NOTE | 2018-07-08 02:08 | PN ---
The patient is doing much better. He is tolerating the diet, so far had a bowel movement. He is amb ulating in the room and hallways. Very likely he will be discharged tomorrow. RON/SHERRIE Voice ID: [id number] Report ID: [id number]
--- NOTE | 2018-07-08 02:08 | PN ---
Date of Progress Note: 07/07/2018 Chief Complaint: Acute kidney injury and secondary to renal hypoperfusion. Creatinine improved. Th e patient is taken off vancomycin. He is tolerating p.o. intake. Review of Systems: Denies fever, chills. Physical Examination: Lungs: Clear to auscultation bilaterally. Heart: S1, S2. Abdomen: Soft, benign. Extremities: No edema. Impression And Plan: 1.Acute kidney injury. Renal function is improving. The patient is tolerating p.o. intake. 2.Small bowel obstruction, status post surgery. Diet is advanced according to surgical team recomme ndation. 3.Hypertension. Blood pressure control. 4.Anemia. Hemoglobin level stable. 5.Leukocytosis, resolving. 6.Status post surgery for small bowel obstruction. Further management per surgical team. GÉNESIS/MODL Voice ID: [id number] Report ID: [id number]
[2018-07-08 06:23] LABS: Potassium 3.3 mmol/L (3.5-5.1)
[2018-07-08] MEDS: PROMETHAZINE 25 MG/ML VIAL IV PRN ×3 (07:54→21:14)
[2018-07-08] MEDS ORDERED: POTASSIUM 25 MEQ EFFERV TAB PO ONE (09:20)
[2018-07-08] MEDS: PANTOPRAZOLE 40MG TABLET PO SCH ×2 (09:35→17:06)
[2018-07-08] MEDS: D5W 1,000 ML IV SCH ×4 (09:36→21:14)
[2018-07-08] MEDS: OXcarbazepine 150 MG TAB PO SCH ×2 (09:37→21:13)
--- NOTE | 2018-07-08 13:12 | P.PN ---
Subjective Date of Service: 07/08/18 Chief Complaint: Hypotension postop Subjective: Improving pt feels better Cr up to 1.4, with NA 150 will start on d5W encourage PO inatke K replaced Physical Examination - Vital Signs Temperature: 97.5 F Blood Pressure: 122/64 Pulse: 97 Respirations: 17 Pulse Ox (%): 96 - Physical Exam General: In no apparent distress, Oriented x3 HEENT: Atraumatic Neck: Supple, 2+ carotid pulse no bruit, Without JVD or thyroid abnormality Respiratory: Clear to auscultation bilaterally, Normal air movement Cardiovascular: No edema, Regular rate/rhythm, Normal S1 S2, No rubs, No murmurs Gastrointestinal: Normal bowel sounds, Soft and benign Assessment And Plan - Current Problems (Diagnosis) (1) ANGELO (acute kidney injury) Current Visit: Yes Status: Acute - Plan Impression And Plan: Acute kidney injury. Cr slightly trending up restart fluids prerenal encourage Po intake Small bowel obstruction, status post surgery. HTN controlled hypokalemia encourage po intake hypernatremia strart on d5W encourage Po intake
--- NOTE | 2018-07-08 13:20 | RAD REPORT ---
EXAM DESCRIPTION: RAD - Abdomen W Erect - 07/08/2018 1:10 pm CLINICAL HISTORY: Abdominal pain, vomiting, recent abdominal surgery believed to be lysis of adhesio ns COMPARISON: CT study July 03 TECHNIQUE: Supine and upright views of the abdomen were obtained. FINDINGS: No abnormal free air collection. Small amounts of free air would not be unexpected given t he recent intra-abdominal surgery. No pneumatosis. Patient has multiple dilated small bowel loops. Co ngoc is decompressed. Midline staple lines are present. IMPRESSION: Multiple dilated small bowel loops without abnormal free air or pneumatosis. Dilated small bowel pattern is more prominent than the pre-surgical 07/03/2018 examination. Finding could reflect a recurrent small bowel obstruction or prominent adynamic ileus.
[2018-07-08] MEDS: ONDANSETRON 4 MG/2 ML VIAL IV PRN ×2 (13:27→18:21)
--- NOTE | 2018-07-08 13:55 | P.PN ---
Date of Service: 07/08/18 S: Collado well today, but started having some nausea and vomiting. No pain associated with it. Just almost no effort when vomiting he states O : Abdomen is soft, mildly tympanic no guarding rebound her pain incision looks s good A: Postop ileus Continue with IV fluids, replace potassium, cut back to NPO with ice chips and popsicles and restart feeding regime tomorrow if any improvement. l
[2018-07-08] MEDS: MORPHINE 4 MG/ML SYR IV PRN (21:14)
--- NOTE | 2018-07-08 21:46 | PN ---
The patient started having vomiting and abdominal distention. Again, an x-ray showed evidence of ___ . In view of this, he is n.p.o., now with IV fluids. His potassium replacement has been done . RON/SHERRIE Voice ID: [id number] Report ID: [id number]
[2018-07-09] MEDS: ACETAMINOPHEN 500 MG TAB PO PRN ×2 (03:06→23:32)
[2018-07-09] MEDS: D5W 1,000 ML IV SCH ×3 (03:06→22:00)
[2018-07-09] MEDS: ONDANSETRON 4 MG/2 ML VIAL IV PRN ×3 (05:19→19:27)
[2018-07-09] MEDS: PANTOPRAZOLE 40MG TABLET PO SCH ×2 (07:46→16:39)
[2018-07-09] MEDS: OXcarbazepine 150 MG TAB PO SCH ×2 (09:13→21:00)
[2018-07-09] MEDS ORDERED: MINERAL OIL 30 ML UCUP GT ONE (16:25)
--- NOTE | 2018-07-09 16:26 | P.PN ---
Date of Service: 07/09/18 S: Doing somewhat better. Having some watery diarrhea. Abdomen is still mildly distended. O: Abdomen somewhat tympanic has occasional bowel says A: Postoperative ileus appears to be resolving slowly P: Continue IV fluids, will advanced diet slowly. Will give patient some selected as snacks. Post operative ileus appears to be slowly resolving. Anticipate patient will be discharged Wednesday.
--- NOTE | 2018-07-10 01:16 | PN ---
Date of Progress Note: 07/09/2018 Chief Complaint: Acute kidney injury. History Of Present Illness: Acute kidney injury, nonoliguric. The patient was restarted on IV fluid s to prevent prerenal azotemia. The patient is tolerating p.o. intake. Review of Systems: Denies fever, chills. Physical Examination: Lungs: Clear to auscultation bilaterally. Heart: S1, S2. Abdomen: Soft, benign, nontender. Extremities: No edema. Laboratory Data: Hemoglobin 12.5, WBC 7.8, platelet count is 199,000. Sodium 150, potassium 3.3, ch loride 116, BUN 19, creatinine 1.42, carbon dioxide 29, glucose 104, calcium 7.9. Impression And Plan: 1.Prerenal azotemia. Creatinine level is improving from 1.8. Continue IV fluids. 2.Hypernatremia. Encourage p.o. fluid intake. Patient currently is on D5W at 125 cc/hour. Monitor electrolytes daily. GÉNESIS/MODL Voice ID: [id number] Report ID: [id number]
--- NOTE | 2018-07-10 02:42 | PN ---
The patient is doing slightly better today. He still has cramps, but he is not vomiting and he does not have any nausea. The patient is given liquid diet to see whether he would tolerate, otherwise, t he patient is stable. RON/SHERRIE Voice ID: [id number] Report ID: [id number]
[2018-07-10] MEDS: ONDANSETRON 4 MG/2 ML VIAL IV PRN (04:55)
[2018-07-10] MEDS: D5W 1,000 ML IV SCH ×6 (04:55→17:53)
[2018-07-10] MEDS: PANTOPRAZOLE 40MG TABLET PO SCH ×2 (07:57→17:10)
[2018-07-10] MEDS: OXcarbazepine 150 MG TAB PO SCH ×2 (07:57→20:55)
[2018-07-10 12:44] LABS: Potassium 2.8 mmol/L (3.5-5.1)
[2018-07-10] MEDS: KCL 20 MEQ/100 mL IVPB 20 MEQ/100 ML BAG IV SCH ×2 (13:00→15:58)
[2018-07-10] MEDS: VANCOMYCIN ORAL SOLN 250 MG/5 ML OSYR PO SCH (17:10)
[2018-07-10] MEDS ORDERED: MORPHINE 4 MG/ML SYR IV PRN (20:31)
--- NOTE | 2018-07-10 22:28 | PN ---
The patient tolerated liquids very well. He is ambulatory. The patient is started on a regular diet . By error, his IV fluid rate was increased to 250 instead of decreasing. I spoke to the nurse and discontinuation of IV fluids has been done. The patient's potassium is low. He is ordered 2 piggyba cks of IV potassium. It will be repeated and if necessary, he will receive additional potassium. RON/SHERRIE Voice ID: [id number] Report ID: [id number]
[2018-07-11] MEDS: VANCOMYCIN ORAL SOLN 250 MG/5 ML OSYR PO SCH ×4 (00:14→16:40)
[2018-07-11] MEDS: ONDANSETRON 4 MG/2 ML VIAL IV PRN ×2 (00:32→18:03)
--- NOTE | 2018-07-11 01:59 | PN ---
Date of Progress Note: 07/10/2018 Chief Complaint: Acute kidney injury, nonoliguric. History Of Present Illness: Renal function somewhat declined and the patient was started on IV fluid s. The patient has hypernatremia, has been treated with D5W infusion. Review of Systems: Denies fever, chills. Physical Examination: Lungs: Clear to auscultation bilaterally. Heart: S1, S2. Abdomen: Soft, benign. Extremities: No edema. Laboratory Data: Sodium 150, potassium 3.3, chloride 116, BUN 19, creatinine 1.42, carbon dioxide 29 , calcium 7.9. Impression And Plan: 1.Prerenal azotemia. Serum creatinine is improving from 1.8. Continue IV fluids. Adjust fluids ac cordingly. Monitor electrolytes closely. Hypernatremia. Encourage p.o. intake. The patient is on D5W. Monitor electrolytes. Adjust treatment. 2.Clostridium difficile colitis. Continue on Flagyl. GÉNESIS/MODZohreh Voice ID: [id number] Report ID: [id number]
[2018-07-11] MEDS: ACETAMINOPHEN 500 MG TAB PO PRN (06:02)
[2018-07-11 08:55] LABS: Phosphorus 2.7 mg/dL (2.5-4.9)
[2018-07-11] MEDS ORDERED: POTASSIUM CL 40 MEQ in NA CHLORIDE 0.9% 500 ML IV SCH (09:00)
[2018-07-11] MEDS: OXcarbazepine 150 MG TAB PO SCH ×2 (09:00→09:52)
[2018-07-11] MEDS: PANTOPRAZOLE 40MG TABLET PO SCH ×2 (09:51→16:40)
[2018-07-11 10:42] VITALS: O2SAT 93
[2018-07-11] MEDS: D5W 1,000 ML IV SCH (12:33)
--- NOTE | 2018-07-11 14:52 | P.PN ---
Date of Service: 07/11/18 S: Patient is doing well today, hepatitis starting to improve. More formed bowel movements. Getting bored. O: Vital signs are stable, incisions clean, apparently had stool culture come back positive for C difficile A: Patient is surgically stable. P: Surgically stable for discharge. C diff could be treated as an outpatient. When he is discharged he will come see me in my office on Wednesday. I have explained this to the patient, he is comfortable with this plan. If he has any questions or problems on discharge, he will contact me, or directly to the emergency room.
[2018-07-11 16:52] VITALS: BP 126/65; TEMP 97.2
--- NOTE | 2018-07-12 04:21 | PN ---
Date of Progress Note: 07/11/2018 Chief Complaint: Acute kidney injury, nonoliguric. History Of Present Illness: The patient is on IV fluids to control prerenal azotemia and nonoliguric ATN. Renal function has improved somewhat, and the patient has hypernatremia. The patient was star dora on IV fluids for hydration. The patient is tolerating p.o. intake. Review of Systems: Denies fever or chills. Physical Examination: Lungs: Clear to auscultation bilaterally. Heart: S1, S2. Abdomen: Soft, benign. Extremities: No edema. Impression And Plan: 1.Prerenal azotemia. Continue IV fluids and p.o. intake. Encourage p.o. intake to control hypovole rito. 2.Clostridium difficile colitis, on treatment. 3.Status post small bowel surgery for obstruction, per recommendations from primary team and surgery . 4.Hypokalemia, replacement was ordered. Monitor magnesium level and phosphorus level. EB/MODL Voice ID: [id number] Report ID: [id number]
== END 2018-07-11 18:40 | disposition home or self-care (01) | DRG 335 ==
LOC: ER 12:07 → ERHOLD 16:49 → 2ND 17:51 → OBSVTOIN 07-03 08:59 → 3RD-ICU 07-03 11:45 → 2ND 07-05 18:10
PROVIDERS: ADMIT Internal Medicine; ATTEND Internal Medicine
PROC: 0DN80ZZ Release Small Intestine, Open Approach (ICD-10-PCS; 2018-07-04)
PROC: 0DBU0ZZ Excision of Omentum, Open Approach (ICD-10-PCS; 2018-07-04)
PROC: 0WQF0ZZ Repair Abdominal Wall, Open Approach (ICD-10-PCS; principal; 2018-07-04 15:15)
DX: K43.6 Other and unspecified ventral hernia with obstruction, without gangrene (principal); N17.0 Acute kidney failure with tubular necrosis; K56.50 Intestinal adhesions [bands], unspecified as to partial versus complete obstruction; E87.0 Hyperosmolality and hypernatremia; A04.72 Enterocolitis due to Clostridium difficile, not specified as recurrent; K56.7 Ileus, unspecified; I10 Essential (primary) hypertension; E87.6 Hypokalemia; K75.9 Inflammatory liver disease, unspecified; I95.81 Postprocedural hypotension; D64.9 Anemia, unspecified; M19.90 Unspecified osteoarthritis, unspecified site; K21.9 Gastro-esophageal reflux disease without esophagitis; G47.30 Sleep apnea, unspecified; F17.200 Nicotine dependence, unspecified, uncomplicated; M54.81 Occipital neuralgia; R09.02 Hypoxemia; E78.5 Hyperlipidemia, unspecified; E66.9 Obesity, unspecified; K57.90 Diverticulosis of intestine, part unspecified, without perforation or abscess without bleeding; R00.0 Tachycardia, unspecified; R40.4 Transient alteration of awareness
CPT/HCPCS: 36415; 71045; 74019; 74176; 74177; 80048; 80053; 80076; 81003; 81015; 82533; 82565; 82805; 82962; 83605; 83690; 83735; 84100; 84132; 84484; 85014; 85018; 85025; 86850; 86900; 86901; 87040; 87045; 87046; 87493; 88302; 88307; 93005; 97116; 97163; 97530; 99285; G0378; J0330; J2250; J2370; J2405; J2550; J2704; J2710; J2765; J3010; J7030; Q9967